=== PATIENT | female | born 1995 | race Caucasian/White ===

== ENCOUNTER 2020-07-09 11:38 | Outpatient (REF) | payer BC, SELFPAY | END 2020-07-09 11:39 | disposition home or self-care (01) | LOC: HO.LAB 11:38 | PROVIDERS: PCP Internal Medicine; Visit Provider Internal Medicine | DX: Z20.828 Contact with and (suspected) exposure to other viral communicable diseases (principal) | CPT/HCPCS: 87635 ==

== ENCOUNTER 2021-01-14 09:59 | Outpatient (REF) | payer OTHER, SELFPAY ==
[2021-01-15 09:52] LABS: CT PCR NOT DETECTED (Not Detect.); NG PCR NOT DETECTED (Not Detect.)
== END 2021-01-14 10:00 | disposition home or self-care (01) ==
LOC: HO.LAB 09:59
PROVIDERS: Visit Provider Advanced Practice Midwife
DX: Z01.419 Encounter for gynecological examination (general) (routine) without abnormal findings (principal); Z11.3 Encounter for screening for infections with a predominantly sexual mode of transmission; R10.2 Pelvic and perineal pain; Z20.2 Contact with and (suspected) exposure to infections with a predominantly sexual mode of transmission; Z87.42 Personal history of other diseases of the female genital tract
CPT/HCPCS: 87491; 87591; 88142

== ENCOUNTER 2021-01-25 13:41 | Outpatient (REF) | payer OTHER, SELFPAY ==
--- NOTE | ~2021-01-25 | US_ITS ---
EXAMINATION: PELVIC ULTRASOUND CLINICAL INFORMATION: Pain COMPARISON: None TECHNIQUE: Transabdominal and transvaginal pelvic ultrasound was performed. Transvaginal exam was performed for better visualization of the uterus and ovaries. FINDINGS: The uterus is anteverted and measures 7.1 x 2.4 x 4.6 cm in dimension. No focal uterine lesion is seen. Endometrial thickness is normal measuring 0.3 cm. The cervix is normal. The ovaries are normal. The right ovary measures 2.7 x 1.5 x 1.9 cm and the left ovary measures 2.6 x 1.5 x 1.9 cm. There is no fluid in the pelvis. US/US pelvic and transvaginal IMPRESSION: Normal pelvic ultrasound.
== END 2021-01-25 13:42 | disposition home or self-care (01) ==
LOC: HO.US 13:41
PROVIDERS: Visit Provider Advanced Practice Midwife
DX: R10.2 Pelvic and perineal pain (principal); Z87.42 Personal history of other diseases of the female genital tract
CPT/HCPCS: 76830; 76856

== ENCOUNTER → 2021-01-27 15:54 | Outpatient (BNVA) | payer OTHER, SELFPAY | PROVIDERS: Visit Provider Advanced Practice Midwife ==

== ENCOUNTER 2021-09-15 06:41 | Outpatient (REF) | payer OTHER, SELFPAY ==
[2021-09-15 06:53] LABS: MANUAL DIFF FLAG NO
[2021-09-15 07:55] LABS: Appearance Urine CLOUDY; Color Urine YELLOW; Glucose Urine UA NEG (NEG); Leukocyte Esterase Urine 1+ (NEG); Nitrite Urine NEG (NEG); Specific Gravity - Urine >= 1.030 (1.005-1.025); Urine Blood 3+ (NEG); Urine Ketones NEG (NEG); Urine Protein NEG (NEG-TRACE)
[2021-09-15 07:55] LABS: Basophils Absolute Auto 0.1 X10*3/uL (0.0-0.2); Basophils Percent Auto 0.7 % (0-2); Eosinophils Percent Auto 10.3 % (0-4); Hematocrit 42.3 % (37.0-47.0); Hemoglobin 14.1 g/dl (12.0-16.0); Imm Gran Abs Auto 0.04 X10*3/uL (0.00-0.03); Imm Gran Pct Auto 0.4 % (0.0-0.4); Lymphocytes Absolute Auto 3.5 X10*3/uL (1.2-4.9); Lymphocytes Percent Auto 36.9 % (20-40); Mean Corpuscular HGB Conc 33.3 g/dl (31.0-35.0); Mean Corpuscular Hemoglobin 30.3 pg (27.0-33.0); Mean Corpuscular Volume 90.8 fL (80.0-98.0); Monocytes Absolute Auto 0.8 X10*3/uL (0.1-1.2); Neutrophils Absolute Auto 4.1 x10*3/uL (2.0-8.3); Neutrophils Percent Auto 43.7 % (45-73); Platelet Count 307 X10*3/uL (160-400); Red Blood Count 4.66 X10*6/uL (4.20-5.50); Red Cell Distribution Width 12.1 % (11.0-16.0); White Blood Count 9.4 X10*3/uL (4.8-10.8)
[2021-09-15 08:19] LABS: Bacteria Urine 4+ /LPF; Squamous Epithelial Cell Urine 4+ /LPF
[2021-09-15 08:20] LABS: Alanine Aminotransferase 15 U/L (0-31); Albumin Level 4.1 g/dL (3.5-5.0); Alkaline Phosphatase 52 U/L (39-117); Anion Gap 10 (12-20); Aspartate Amino Transferase 15 U/L (5-31); Bilirubin Total 0.5 mg/dL (0.0-1.0); Blood Urea Nitrogen 12 mg/dL (9-16); Calcium 9.4 mg/dL (8.4-10.2); Carbon Dioxide 26 mmol/L (22-29); Chloride 108 mmol/L (96-108); Cholesterol 192 mg/dL; Estimated Glomerular Filt Rate > 60; Glucose Fasting 81 mg/dL (60-99); HDL Cholesterol 43 mg/dL; LDL Cholesterol Calculated 133 mg/dl; Potassium 4.5 mmol/L (3.3-5.1); Sodium 139 mmol/L (135-145); Total Protein 6.9 g/dL (6.5-8.0); Triglycerides 84 mg/dL
== END 2021-09-15 06:42 | disposition home or self-care (01) ==
LOC: HO.LAB 06:41
PROVIDERS: PCP Internal Medicine; Visit Provider Internal Medicine
DX: Z00.00 Encounter for general adult medical examination without abnormal findings (principal); Z13.220 Encounter for screening for lipoid disorders
CPT/HCPCS: 36415; 80053; 80061; 81001; 85025

== ENCOUNTER 2021-09-22 15:23 | Outpatient (REF) | payer OTHER, SELFPAY ==
[2021-09-22 16:31] LABS: Appearance Urine HAZY; Color Urine YELLOW; Glucose Urine UA NEG (NEG); Leukocyte Esterase Urine NEG (NEG); Nitrite Urine NEG (NEG); Specific Gravity - Urine >= 1.030 (1.005-1.025); Urine Blood NEG (NEG); Urine Ketones NEG (NEG); Urine Protein NEG (NEG-TRACE)
[2021-09-23 12:45] LABS: Squamous Epithelial Cell Urine 1+ /LPF
[2021-09-23 12:47] LABS: Amorphous Sediment Urine 4+ /LPF
[2021-09-23 12:48] LABS: RBC Urine 0 /HPF (0); WBC Urine 0 /HPF (0-4)
== END 2021-09-22 15:24 | disposition home or self-care (01) ==
LOC: HO.LAB 15:23
PROVIDERS: PCP Internal Medicine; Visit Provider Internal Medicine
DX: R31.29 Other microscopic hematuria (principal)
CPT/HCPCS: 81003

== ENCOUNTER 2021-10-08 07:06 | Outpatient (REF) | payer OTHER, SELFPAY ==
--- NOTE | ~2021-10-08 | XR_ITS ---
EXAMINATION: XR KNEE, BILATERAL XR KNEE, LEFT CLINICAL INFORMATION: Pain. COMPARISON: None TECHNIQUE: AP standing views of both knees and 2 additional views of the left knee. FINDINGS: No displaced fracture. Cartilage spaces are fairly well preserved. No joint effusion. Soft tissues unremarkable. XR/XR knee LT 2V IMPRESSION: Unremarkable left knee.
--- NOTE | ~2021-10-08 | XR_ITS ---
EXAMINATION: XR KNEE, BILATERAL XR KNEE, LEFT CLINICAL INFORMATION: Pain. COMPARISON: None TECHNIQUE: AP standing views of both knees and 2 additional views of the left knee. FINDINGS: No displaced fracture. Cartilage spaces are fairly well preserved. No joint effusion. Soft tissues unremarkable. XR/XR knee standing BI IMPRESSION: Unremarkable left knee.
== END 2021-10-08 07:07 | disposition home or self-care (01) ==
LOC: HO.HOSX 07:06
PROVIDERS: Visit Provider Physician Assistant
DX: M22.2X2 Patellofemoral disorders, left knee (principal)
CPT/HCPCS: 73560; 73565

== ENCOUNTER → 2021-10-29 08:07 | Outpatient (REF) | payer OTHER, SELFPAY ==
--- NOTE | 2021-10-29 08:11 | CA_ITS ---
Transthoracic Echocardiogram Patient (Last, First, Middle): Bethany Hughes, Gender: Female Date of : 1995 Age: 26 Procedure Date: 10/29/2021 Procedure Type: Transthoracic Echocardiogram Location: OP Height: 157.48 cm Weight: 68.04 kg BSA: 1.69 m2 Heart Rate: bpm BP: 120 / 80 mmHg Order Picker/Assembler: VH/OT Referring MD: Federico Woodruff MD Lining Caser: Jakub Deshpande MD Symptoms: SOB, FIT OF SEVERE , POSS HERIDITARY CAUSE Study Quality: Fair ECG Rhythm: Sinus Conclusions: - Essentially normal study however aortic valve is not well seen and cannot rule out bicuspid aortic valve Findings Left Ventricle Normal left ventricular size, thickness, and systolic function. The visually estimated ejection fraction is between 60-65%. Diastolic function is normal for age. Right Ventricle Normal right ventricular cavity size and systolic function. Atria Both atria are normal in size. Interatrial shunt cannot be excluded. Aortic Valve The aortic valve was not well visualized. There is no aortic valve stenosis. There is no aortic valve regurgitation. Mitral Valve Normal mitral valve structure and function. There is no mitral valve regurgitation. There is no mitral valve stenosis. Pulmonic Valve The pulmonic valve was not well visualized. Tricuspid Valve Likely normal tricuspid valve structure and function. There is trace tricuspid valve regurgitation. The right ventricular systolic pressure is normal. The right ventricular systolic pressure is 21 mmHg. There is no evidence of pulmonary hypertension. Great Vessels All visible segments of the aorta are normal in size. The pulmonary artery was not well visualized. Venous The inferior vena cava is normal in size and collapses greater than 50% with inspiration. Pericardium/Pleural There is no evidence of pericardial effusion. Prior Study Comparison No prior study available for comparison. Measurements 2D Linear Measurements IVSd: 0.73 0.6-0.9/0.6-1.0 cm LVIDd: 4.14 3.9-5.3/4.2-5.9 cm LVIDd Index: 2.45 2.4-3.2/2.2-3.1 cm/m2 LVIDs: 2.80 2.0-3.6 cm LVPWd: 0.72 0.7-1.1 cm Ao Root: 2.30 2.1-3.5 cm LA Diam: 3.20 2.7-3.8/3.0-4.0 cm LAIDs Index: 1.89 1.5-2.3 cm/m2 LV Mass: 107.48 67-162/88-224 g LV Mass Index: 63.60 43-95/49-115 g/m2 LVOT Diam: 2.00 3.0+(-)1.3 cm Mitral Valve MV Pk E: 0.93 MV PK A: 0.61 MV Decel Time: 214.00 E/A: 1.50 E'Lateral: 13.10 E'Medial: 9.03 E/E' Med: 10.30 E/E' Lat: 7.10 PHT: 63.00 MVA PHT: 3.49 Decel [place]: 4.34 Aortic Valve AoV Pk Oliver: 1.48 AoV Mn Oliver: 0.97 AoV VTI: 0.32 AoV Pk Grad: 9.00 Aov Mn Grad: 4.00 DARCIE Cont.VTI: 2.31 LVOT LVOT Pk Oliver: 1.00 LVOT Mn Oliver: 0.69 LVOT VTI: 0.23 LVOT Pk Grad: 4.00 LVOT Mn Grad: 2.00 LVOT Diam: 2.00 LVOT Area: 3.14 Diastolic Function MV Pk E: 0.93 MV Pk A: 0.61 E/A: 1.50 E'Medial: 9.03 E/E' Med: 10.30 E' Laterial: 13.10 E/E' Lat: 7.10 Tricuspid Valve TR Pk Oliver: 2.13 TR Pk Grad: 18.00 RA Press: 3.00 RVSP: 21.00 Great Vessels Aorta Ao Root-2D: 2.30 2.0-3.7 cm Ao Asc: 2.40 2.1-3.4 cm Pulmonary Valve PV Pk Oliver: 1.10 Peak PV Grad: 5.00 Updated in Other Vendor System with Status of Final Jakub Deshpande MD electronically signed on 10/29/2021 5:02:47 PM with status of Final
== END ==
LOC: HO.CARD 08:07
PROVIDERS: PCP Internal Medicine; Visit Provider Internal Medicine
DX: R06.02 Shortness of breath (principal)
CPT/HCPCS: 93306

== ENCOUNTER → 2021-11-19 15:28 | Outpatient (BNVA) | payer OTHER, SELFPAY | PROVIDERS: PCP Internal Medicine; Visit Provider Physician Assistant ==

== ENCOUNTER 2021-12-09 15:00 | Outpatient (RCR) | payer OTHER, SELFPAY ==
--- NOTE | 2021-10-29 15:39 | MHC.PT.EP ---
[facility] [place] Office [place] Office [place] Office [address] [phone] F: [phone] F: [phone] F: [phone] F: [phone] Physical Therapy Plan of Care Date of Evaluation: Date of Surgery: NA Diagnosis: Patellofemoral disorder, L knee Assessment: Bethany is 26 year old female who is referred to PT for patellofemoral disoder, L Knee . She reports of having knee pain for over 2 years following an injury to knee while she was squatting in the gym. On PT examination she reports of having a constant 5/10 pain, difficulty with sit to stand, prolonged sitting, standing and squatting, decreased muscle strength, altered posture, and gait. She is independent with all ADLs but has pain with them. 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 She would benefit from skilled PT to address the aforementioned impairment and improve tolerance to functional activities. Frequency and Duration: The patient will be seen 2/week for 5 weeks Short Term Goals: 1. Pt will have 50% decrease in pain which will enable her to sleep through the night in 2 weeks. 2. Pt will be able to perform at least 10 sit to stand from the chair without pain in 3 weeks Core Paster Goals: 1. Pt will demonstrate an increase in muscle strength by 1 grade which will enable her to perform her ADLs without pain in 4 weeks. 2. Pt will return to PLOF and will be independent with HEPs in 5 weeks Treatment Plan: Modalities to reduce pain, spasms and effusion. Manual therapy to restore motion and function. Therapeutic exercise to improve strength and flexibility. Neuromuscular re-education for posture and balance. Therapeutic activities to return to functional activities of daily living. Electronically signed by: Valorie Lin PT DPT Please sign and return to therapist. Thank you for your referral.
--- NOTE | 2021-12-09 15:45 | MHC.PT.DC ---
[facility] [place] Office [place] Office [place] Office [address] [phone] F: [phone] F: [phone] F: [phone] F: [phone] Physical Therapy Discharge Report Diagnosis: Patellofemoral disorder, L knee Date of Surgery: NA Date of Evaluation: 10/29/21 Date of Discharge: 12/09/21 Treatments to Date: 12 Cancellations to Date: 0 No Shows to Date: 0 Discharge Status: Improved Function Independent with HEP Discharge Summary: Bethany has improved significantly and is independent with her HEP. She also has been demonstrated self taping techniques which she can do when she has increased pain. Bethany is therefore being d/c from therapy today. She is in agreement with the plan. Electronically signed by: Valorie Lin PT DPT Please sign and return to therapist. Thank you for your referral.
== END 2021-12-09 15:45 | disposition home or self-care (01) ==
LOC: HO.PT 15:00
PROVIDERS: PCP Internal Medicine; Visit Provider Physician Assistant
DX: M22.2X2 Patellofemoral disorders, left knee (principal)
CPT/HCPCS: 97035; 97110; 97140; 97161; 97530

== ENCOUNTER → 2022-06-30 13:05 | Outpatient (RCR) | payer OTHER, SELFPAY ==
[2020-08-04 15:16] LABS: COVID-19 Test Negative (Negative); IDNOW Serial# 55D5AD1C
[2020-08-11 14:58] LABS: COVID-19 Test Negative (Negative)
[2020-08-28 13:15] LABS: SARS-COV-2 PCR UMBRL Not Detected
[2020-09-03 12:22] LABS: SARS-COV-2 PCR UMBRL Not Detected
[2020-09-10 10:31] LABS: SARS-COV-2 PCR UMBRL Not Detected
[2020-09-23 09:47] LABS: SARS-COV-2 PCR UMBRL NOT DETECTED
[2020-09-27 09:54] LABS: SARS-COV-2 PCR UMBRL NEGATIVE
== END | disposition home or self-care (01) ==
LOC: HO.EMPCOV 08-04 14:34
PROVIDERS: PCP Internal Medicine; Visit Provider Internal Medicine
DX: Z20.828 Contact with and (suspected) exposure to other viral communicable diseases (principal)
CPT/HCPCS: 36415; 87635; C9803; U0003